=== PATIENT | male | born 2005 | race Caucasian/White ===

== ENCOUNTER 2023-10-11 10:30 | Emergency (ER) | payer BC, OTHER, SELFPAY ==
--- NOTE | ~2023-10-11 | XR_ITS ---
EXAMINATION: XR shoulder RT min 2V, XR clavicle RT DATE: 10/11/2023 10:48 INDICATION: Right clavicle/shoulder pain post trauma TECHNIQUE: 1. AP, AP oblique externally rotated and transscapular Y views of the right shoulder were obtained. 2. AP and cephalad angled AP views of the right clavicle were obtained. COMPARISON: None FINDINGS: 1 cortical width displacement and mild apex anterior angulation of a mildly comminuted fractures at t he junction of the mid and lower thirds of the right clavicle. No other fractures identified. Normal alignment and joint space at the right acromioclavicular and glenohumeral joints. Visual is portions the lungs are clear. IMPRESSION: Mildly comminuted fractures at the junction of the mid and distal thirds of the right clavicle with o ne cortical width displacement and mild angulation. Reviewed, dictated and finalized at location A. IMPRESSION: Mildly comminuted fractures at the junction of the mid and distal thirds of the right clavicle with one cortical width displacement and mild angulation.
[2023-10-11 10:30] VITALS: BP 127/92; PULSE 118; RESP 20; O2SAT 98
--- NOTE | 2023-10-11 10:35 | ED.UPPEXIN ---
HPI - Extremity Injury (Upper) General Chief Complaint: Extremity Injury, Upper Stated Complaint: right shoulder pain Time Seen by Provider: 10/11/23 10:32 Source: patient Mode of arrival: ambulatory Limitations: no limitations History of Present Illness HPI narrative: Patient is a 18-year-old male with an injury to the right shoulder/clavicle area this morning. He was running in the house and hit the wall accidentally. No other injuries. No head or neck injuries. MD complaint: injury to: right and shoulder ( And clavicle) Onset (ago): hour(s) (2) Other injuries: none Place: home Severity: moderate Severity scale (1-10): 5 Relieving factors: immobilization Exacerbating factors: movement of extremity Context: direct blow Associated symptoms: denies other symptoms Related Data Allergies Allergy/AdvReac Type Severity Reaction Status Date / Time No Known Allergies Allergy Verified 10/11/23 10:34 Review of Systems Review of Systems: All systems reviewed & are unremarkable except as noted in HPI and below Constitutional: Constitutional: Reports no additional constitutional complaints Eyes: Eyes: Reports no additional eye complaints ENT: Reports system reviewed and no additional complaints, except as documented Cardiovascular: Cardiovascular: Reports no additional cardiovascular complaints Respiratory: Respiratory: Reports no additional respiratory complaints Gastrointestinal: Gastrointestinal: Reports no additional gastrointestinal complaints Genitourinary: Genitourinary: Reports no additional male genitourinary complaints Musculoskeletal: Musculoskeletal: Reports no additional musculoskeletal complaints Integumentary/Breasts: Skin/Breast: Reports system reviewed and no additional complaints, except as docu Neurologic: Reports system reviewed and no additional complaints, except as documented Psychiatric: Psychiatric: Reports no additional psychiatric complaints Endocrine: Endocrine: Reports no additional endocrine complaints Hematologic/Lymphatic: Hematologic/Lymphatic: Reports no additional hematologic/lymphatic complaints Allergic/Immunologic: Allergic/Immunologic: Reports no additional allergic/immunologic complaints Exam Const: General: healthy appearing Nutritional Appearance: well nourished Orientation/consciousness: patient oriented x3 HENMT: Head: normal to inspection Ears: external ears normal Face/Nose/Sinus: Normal external nose present Eyes: Conjunctivae: conjunctivae normal Pupils: Equal, round and reactive pupils present EOM: EOMs intact bilaterally Neck: Neck: normal visual inspection Chest: Chest palpation & inspection: normal inspection of the chest Resp: Effort & Inspection: normal respiratory effort Auscultation: clear to auscultation bilaterally Cardio: Rate: regular rate Rhythm: regular rhythm Heart sounds: no murmurs GI: Inspection: non-distended GI Palp: Yes Soft to palpation and No Tenderness to palpation present (GI) Auscultation: normal bowel sounds : General: Yes bladder normal to palpation Back/Spine/Pelvis: Back: no CVA tenderness Skin: General skin exam: normal color Rashes: no rashes Wounds: no wounds Neuro: General: patient oriented x3 Cranial nerves: Yes Nystagmus not present Speech: normal speech Extrem: General: abnormal to inspection Other: right clavicle lateral aspect has tenderness and a slight irregularity to the bony process; shoulder appears intact; decreased range of motion due to pain Psych: Mental Status: mental status grossly normal Affect: normal affect Attitude: cooperative Course Vital Signs Vital signs: Vital Signs Pulse Rate 118 H 10/11/23 10:30 Respiratory Rate 10/11/23 10:30 Blood Pressure 127/92 H 10/11/23 10:30 Pulse Oximetry 98 10/11/23 10:30 Oxygen Delivery Room Air 10/11/23 10:30 Pulse Rate 118 H 10/11/23 10:30 Respiratory Rate 20 10/11/23 10:30 Blood Pressure 127/92 H
[2023-10-11 11:40] VITALS: BP 128/77; PULSE 77; RESP 20; O2SAT 98
== END 2023-10-11 11:40 | disposition home or self-care (01) ==
PROVIDERS: Emergency Provider Emergency Medicine; PCP Physician Assistant
DX: S42.031A Displaced fracture of lateral end of right clavicle, initial encounter for closed fracture (principal); W22.01XA Walked into wall, initial encounter
CPT/HCPCS: 73000; 73030; 99284; A4565